=== PATIENT | male | born 1955 | race Caucasian/White ===

== ENCOUNTER 2024-12-11 06:15 | Day surgery (SDC) | payer MEDICARE, SELFPAY | END 2024-12-11 11:19 | disposition home or self-care (01) | LOC: GI 06:15 | PROVIDERS: ATTENDING PHYSICIAN Surgery | DX: Z12.11 Encounter for screening for malignant neoplasm of colon (principal); K64.9 Unspecified hemorrhoids; K57.30 Diverticulosis of large intestine without perforation or abscess without bleeding; D12.3 Benign neoplasm of transverse colon; D12.1 Benign neoplasm of appendix; Z80.0 Family history of malignant neoplasm of digestive organs; Z86.0100 Personal history of colon polyps, unspecified | CPT/HCPCS: 45385; 45380; 88305 ==